=== PATIENT | female | born 1955 | race Hispanic/Latino ===

== ENCOUNTER 2017-12-08 22:57 | Inpatient (IN) | payer MEDICAID ==
[2017-12-08] MEDS ORDERED: NACL 0.9% 500 ML 500 ML IV ONE (23:18)
[2017-12-08] MEDS ORDERED: TYLENOL PO STA (23:18)
[2017-12-08] MEDS ORDERED: NACL 0.9% 1000 ML 2,000 ML ONE (23:24)
[2017-12-08] MEDS ORDERED: ZOFRAN ONE (23:24)
[2017-12-08] MEDS ORDERED: LOPRESSOR IV ONE ×2 (23:32→23:44)
[2017-12-08] MEDS ORDERED: NACL 0.9% 1000 ML 1,000 ML IV ONE (23:44)
[2017-12-08] MEDS ORDERED: ZOFRAN IV ONE (23:44)
--- NOTE | 2017-12-08 23:54 | XRay Report ---
FINAL REPORT PROCEDURE: XR CHEST 1V AP TECHNIQUE: Chest radiograph anteroposterior view. CPT 27993 HISTORY: possible Sepsis COMPARISON: No prior studies are available for comparison. FINDINGS: Two AP upright views of the chest were obtained, both images the patient is rotated to the left. A right jugular central venous line is in place. The tip projects in the proximal SVC. No pneumothorax visualized. Right lung appears clear. Left lung is poorly visualized due to rotation. I cannot exclude retrocardiac density. The heart is magnified due to projection probably normal size. No acute bony abnormalities are seen. IMPRESSION: Central venous line in place as described. No evidence of pneumothorax. The left lung is poorly visualized as the patient is rotated. I cannot exclude retrocardiac density including atelectasis or infiltrate. Follow-up PA and lateral chest x-ray is suggested.
[2017-12-09 00:01] LABS: Hematocrit 21.9 % (30.3-42.9); Hemoglobin 7.3 gm/dl (10.1-14.3); Mean Corpuscular HGB Conc 33 % (30-34); Mean Corpuscular Hemoglobin 31 pg (28-32); Mean Corpuscular Volume 95 fl (79-97); Platelet Count 285 K/mm3 (140-440); Red Blood Count 2.31 M/mm3 (3.65-5.03)
[2017-12-09 00:08] LABS: Red Cell Distribution Width 23.9 % (13.2-15.2)
[2017-12-09 00:09] LABS: INR 1.15 (0.87-1.13)
[2017-12-09] MEDS ORDERED: LOPRESSOR IV ONE ×2 (00:10→01:25)
--- NOTE | 2017-12-09 00:15 | Emergency Department Report ---
ED General Adult HPI - General Chief complaint: Weakness Stated complaint: ANEMIA Time Seen by Provider: 12/08/17 23:28 Source: EMS Mode of arrival: Stretcher Limitations: Physical Limitation - History of Present Illness Initial comments: FPC patient code sepsis here with fever and tachycardia nonhealing pelvic wound that straining pus awake and alert and oriented with Dr. Maxi heller heart rate patient is with RVR patient aftib state. bBlockers with dig for a fib, also on warfarin.with tachycardia rapid A. fib sepsis we'll try any abdominal contact precautions for history of MRSA. She also has diarrhea possible C. difficile., abx adn cultures, ordered. -: Gradual, unknown Location: abdomen Severity scale (0 -10): 1 Quality: burning Associated Symptoms: malaise, weakness. denies: confusion, diaphoresis, nausea/ vomiting, seizure, shortness of breath, syncope - Related Data Allergies Allergy/AdvReac Type Severity Reaction Status Date / Time No Known Allergies Allergy Unverified 12/08/17 23:17 ED Review of Systems ROS: Stated complaint: ANEMIA Other details as noted in HPI Comment: All other systems reviewed and negative Constitutional: diaphoresis, fever, malaise ENT: denies: dental pain, hearing loss, epistaxis Respiratory: denies: shortness of breath, SOB with exertion, SOB at rest, stridor Cardiovascular: palpitations Gastrointestinal: abdominal pain. denies: vomiting, hematemesis, melena, hematochezia Musculoskeletal: denies: joint swelling, arthralgia Neurological: denies: numbness, paresthesias, confusion Psychiatric: denies: auditory hallucinations, visual hallucinations, homicidal thoughts Hematological/Lymphatic: denies: easy bruising ED Past Medical Hx - Past Medical History Previous Medical History?: Yes Hx Hypertension: Yes Hx Congestive Heart Failure: Yes Hx Diabetes: Yes Additional medical history: narcolepsy, MRSA, CA, AF, Ortho injury - Surgical History Past Surgical History?: No - Social History Smoking Status: Never Smoker Substance Use Type: None ED Physical Exam - General Limitations: Physical Limitation General appearance: alert, obese, other (chronically ill-appearing) - Head Head exam: Present: atraumatic, normocephalic - Eye Eye exam: Present: normal appearance, PERRL, EOMI - ENT ENT exam: Present: normal exam, normal orophraynx - Neck Neck exam: Present: normal inspection. Absent: tenderness, meningismus - Respiratory Respiratory exam: Present: normal lung sounds bilaterally. Absent: rales, rhonchi, stridor - Cardiovascular Cardiovascular Exam: Present: tachycardia, irregular rhythm - GI/Abdominal GI/Abdominal exam: Present: soft, other (draining pelvic wound). Absent: mass - External exam: Absent: ecchymosis, bleeding - Extremities Exam Extremities exam: Present: other (capillary refill about 2 seconds). Absent: calf tenderness - Neurological Exam Neurological exam: Present: alert, CN II-XII intact. Absent: motor sensory deficit - Skin Skin exam: Present: erythema ED Course Vital Signs 12/08/17 12/08/17 12/08/17 22:59 23:06 23:15 Temperature 103.0 F H Pulse Rate 156 H 156 H 152 H Respiratory 18 14 25 H Rate Blood Pressure 132/65 132/65 O2 Sat by Pulse 96 96 Oximetry 12/08/17 12/08/17 12/09/17 23:31 23:45 00:01 Temperature Pulse Rate 143 H 133 H 138 H Respiratory 19 21 30 H Rate Blood Pressure 123/53 118/60 129/55 O2 Sat by Pulse 97 100 98 Oximetry 12/09/17 12/09/17 12/09/17 00:13 00:15 00:16 Temperature 1003.1 F H Pulse Rate 124 H 125 H Respiratory 20 14 Rate Blood Pressure 129/55 118/61 O2 Sat by Pulse 100 99 Oximetry 12/09/17 00:30 Temperature Pulse Rate 139 H Respiratory 11 L Rate Blood Pressure 119/52 O2 Sat by Pulse 95 Oximetry ED Medical Decision Making - Lab Data Result diagrams: 12/08/17 23:29 12/08/17 23:29 - EKG Data -: EKG Interpreted by Ut Rate: tachycardia - EKG Data 12/09/17 02:45 Rapid A. fib with no acute ischemic change - Radiology Data Radiology results: report reviewed - Medical Decision Making Patient was given IV fluids she was also given antibiotics and cultured she does seem to have a draining pelvic abscess and she will get a CAT scan. She has a history of MRSA she also has developed peripheral contact precautions for the above. Case was discussed with the hospitalist and Dr. del toro of cardiology will place patient is icu given the rapid heart rate she'll be admitted to ICU and to discuss case with the hospitalist and the [facility] architect dr zelaya repeat blood pressure was stable heart rate was better control 130 patient will be admitted for eval sepsis, lactic acid is pending Critical Care Time: Yes Critical care time in (mins) excluding proc time.: 45 Critical care attestation.: If time is entered above; I have spent that time in minutes in the direct care of this critically ill patient, excluding procedure time. ED Disposition Clinical Impression: Rapid atrial fibrillation, Sepsis Disposition: 09 OP ADMIT IP TO THIS HOSP Is pt being admited?: Yes Condition: Stable Referrals: BARBARA OWENS MD [Primary Care Provider] - 3-5 Days Time of Disposition: 02:49
[2017-12-09 00:16] LABS: Alanine Aminotransferase 13 units/L (7-56); Albumin 2.9 g/dL (3.9-5); BUN/Creatinine Ratio 24; Blood Urea Nitrogen 22 mg/dL (7-17); Calcium 8.4 mg/dL (8.4-10.2); Hemolysis Index 11
[2017-12-09] MEDS ORDERED: BREVIBLOC DRIP 2.5GM/250ML 2.5 GM/250 ML BAG IV ONE (00:56)
[2017-12-09] MEDS ORDERED: ZOSYN/NS 3.375GM/50ML 3.375 GM/50 ML BAG IV SCH ×2 (01:00→12:00)
[2017-12-09] MEDS ORDERED: NACL ONE (01:05)
[2017-12-09 01:55] LABS: Bacteria,Urine 3+ /HPF (Negative); Bilirubin,Urine NEG (Negative); Blood,Urine SM (Negative); Color,Urine Yellow (Yellow); Mucus,Urine FEW /HPF; Urobilinogen,Urine < 2.0 mg/dL (<2.0)
[2017-12-09 02:16] LABS: Band Neutrophils # (Manual) 0.6 K/mm3; Basophils % (Manual) 0 % (0.0-1.8); Eosinophils % (Manual) 0 % (0.0-4.3); Total Cells Counted 100
[2017-12-09 02:17] LABS: Anisocytosis 2+; Platelet Estimate Consistent w Auto
[2017-12-09] MEDS ORDERED: FLAGYL 500 MG/100 ML 500 MG/100 ML BAG IV SCH ×2 (03:00→10:00)
[2017-12-09] MEDS ORDERED: NACL 0.9% 250ML 250 ML ONE (03:23)
[2017-12-09] MEDS ORDERED: LANOXIN IV ONE (03:26)
--- NOTE | 2017-12-09 03:42 | Cat Scan Report ---
FINAL REPORT PROCEDURE: CT ABDOMEN PELVIS W CON TECHNIQUE: Computerized axial tomography of the abdomen and pelvis was performed after the IV injection of iodinated nonionic contrast. HISTORY: abd pain/open wound COMPARISON: No prior studies are available for comparison. FINDINGS: Visualized lower thorax: No significant abnormality. Liver: The liver is enlarged. There is no discrete mass . Spleen: Normal size and attenuation. Gallbladder and biliary system: Normal. Pancreas: Normal. Adrenals: Normal. Kidneys: There are small kidney cysts. There are no kidney stones. There is no hydronephrosis.. GI tract: There is no bowel obstruction, colitis or enteritis. The appendix is not discretely visible.. Lymph nodes and mesentery: Normal. Vasculature: There is calcified plaque in the abdominal aorta. There is no aneurysm.. Bladder: Normal. Reproductive organs: Normal. Peritoneum: There is a low-density mass in the right inguinal region measuring 3.9 centimeters. This could be an enlarged pelvic lymph node or possibly early abscess. Malignancy cannot be excluded.. Musculoskeletal structures: No significant abnormality. Other: There is a defect in the right lower quadrant anterior abdominal wall. There are multiloculated subcutaneous fluid collections of the lower anterior abdominal wall and right lower quadrant anterior abdominal wall containing contrast, fluid and air consistent with multiple abscesses. There is no demonstrated fistula to intra-abdominal structures including bowel. Maximum overall dimensions of the complex abscess or multiple abscesses is 13 x 10 centimeters. IMPRESSION: There is a defect in the right lower quadrant anterior abdominal wall. There are multiloculated subcutaneous fluid collections of the lower anterior abdominal wall and right lower quadrant anterior abdominal wall containing contrast, fluid and air consistent with multiple abscesses. There is no demonstrated fistula to intra-abdominal structures including bowel. Maximum overall dimensions of the complex abscess or multiple abscesses is 13 x 10 centimeters. There is a low-density intraperitoneal mass or fluid collection in the right inguinal region measuring 3.9 centimeters. This could be an enlarged pelvic lymph node or possibly early abscess. There does not appear to be any obvious direct connection to the subcutaneous abscesses. Malignancy cannot be excluded.. The liver is enlarged. There is no discrete mass. There are small kidney cysts. There are no kidney stones. There is no hydronephrosis.. There is no bowel obstruction, colitis or enteritis. The appendix is not discretely visible
[2017-12-09] MEDS ORDERED: ZOFRAN IV PRN (03:43)
[2017-12-09] MEDS ORDERED: TYLENOL PO PRN (03:44)
[2017-12-09] MEDS ORDERED: NACL 0.9% 250ML 250 ML IV ONE ×2 (03:45→04:20)
[2017-12-09 03:48] LABS: INR 1.15 (0.87-1.13)
[2017-12-09 03:49] LABS: Partial Thromboplastin Time 30.5 Sec. (24.2-36.6)
[2017-12-09] MEDS: NACL 0.9% 1000 ML 1,000 ML IV SCH ×2 (04:54→12:12)
[2017-12-09] MEDS ORDERED: NACL 0.9% 1000 ML 1,000 ML ONE (06:29)
[2017-12-09] MEDS ORDERED: LANOXIN IV NR (10:00)
[2017-12-09] MEDS ORDERED: VANCOMYCIN PHARMACY TO DOSE IV SCH (11:00)
--- NOTE | 2017-12-09 11:21 | Consultation ---
History of Present Illness Consult date: 12/09/17 Chief complaint: low blood count - History of present illness History of present illness: 62 yo F with endometrial cancer presented to hospital from inpatient rehab for evaluation of anemia. She states she was sent for a blood transfusion. She has been undergoing radiation and chemotherapy for cancer. She states her 6 weeks of radiation just finished and she is treated at [facility] [place]. The patient has no other complaints. She was admitted to the ICU secondary to Afib RVR. She has a known hx of Afib and is on warfarin. She does not know the last time she took the medication. Surgery is consulted for findings on CT A/P of abscesses in the abdominal wall. The patient states that she had one "abscess drained at [facility] several years ago but it was found to be cancer. Since then multiple skin sinus tracts have opened up in her lower abdomen and have become nonhealing wounds. She states she had a large bulge in her right lower abdomen/ groin area that extended to her leg which has significantly reduced in size since radiation therapy and did not drain. She states her current open wounds drain light serous/yellow fluid and no longer drain blood or pus. She denies f/c , cp, sob, palpitations, abd pain, n/v. Past History Past Medical History: atrial fib, other (endometrial ca) Past Surgical History: Other (drainage of right lower subcutaneous abscess, PICC line) Social history: no significant social history Family history: no significant family history Medications and Allergies Allergies Allergy/AdvReac Type Severity Reaction Status Date / Time No Known Allergies Allergy Unverified 12/08/17 23:17 Active Meds: Active Medications Acetaminophen (Tylenol) 650 mg PO Q4H PRN PRN Reason: For Pain/Fever/Headache Digoxin (Lanoxin) 0.25 mg IV ONCE NR Stop: 12/09/17 12:00 Sodium Chloride (Nacl 0.9% 1000 Ml) 1,000 mls @ 75 mls/hr IV DIRECT CAMMIE Last Admin: 12/09/17 04:54 Dose: 75 mls/hr Piperacillin Sod/Tazobactam Sod (Zosyn/Ns 4.5gm/100ml) 4.5 gm in 100 mls @ 200 mls/hr IV Q8HR CAMMIE Ondansetron HCl (Zofran) 4 mg IV Q8H PRN PRN Reason: Nausea And Vomiting Vancomycin HCl (Vancomycin Pharmacy To Dose) 1 each IV PKCONSULT CAMMIE; Protocol Review of Systems All systems: negative (10 point ROS performed and negative except for that listed in HPI) Exam Vital Signs Temp Pulse Resp BP Pulse Ox 103.0 F H 156 H 18 132/65 96 12/08/17 22:59 12/08/17 22:59 12/08/17 22:59 12/08/17 22:59 12/08/17 22:59 Narrative exam: Gen: AAOx3. NAD ENT: no scleral icterus or conjunctival pallor CV: S1, s2+. tachy resp:even and unlabored Abd: soft, obese, NT, ND. R lower abdominal open wounds under pannus. 4 open wounds with packing in place and seropurulent discharge. Packing removed from all wounds. Wound probed with cotton tip applicator and largest wound is approximately 7-8 cm deep. No active drainage. R lateral groin area with 4 cm fluctuant and erythematous area. No drainage. Ext: no c/c/e. Results - Labs 12/08/17 23:29 12/08/17 23:29 Abnormal lab results 12/08/17 12/08/17 12/08/17 Range/Units 01:35 23:29 23:29 RBC 2.31 L (3.65-5.03) M/mm3 Hgb 7.3 L (10.1-14.3) gm/dl Hct 21.9 L (30.3-42.9) % RDW 23.9 H (13.2-15.2) % Seg Neuts % (Manual) 92.0 H (40.0-70.0) % Lymphocytes % (Manual) 0 L (13.4-35.0) % Seg Neutrophils # Man 10.1 H (1.8-7.7) K/mm3 Lymphocytes # (Manual) 0.0 L (1.2-5.4) K/mm3 PT 15.3 H (12.2-14.9) Sec. INR 1.15 H (0.87-1.13) VBG pH (7.320-7.420) Sodium (137-145) mmol/L Chloride (98-107) mmol/L BUN (7-17) mg/dL Glucose (65-100) mg/dL Albumin (3.9-5) g/dL Urine WBC (Auto) 48.0 H (0.0-6.0) /HPF Digoxin (0.9-2.0) ng/mL 12/08/17 12/08/17 12/09/17 Range/Units 23:29 23:29 01:47 RBC (3.65-5.03) M/mm3 Hgb (10.1-14.3) gm/dl Hct (30.3-42.9) % RDW (13.2-15.2) % Seg Neuts % (Manual) (40.0-70.0) % Lymphocytes % (Manual) (13.4-35.0) % Seg Neutrophils # Man (1.8-7.7) K/mm3 Lymphocytes # (Manual) (1.2-5.4) K/mm3 PT (12.2-14.9) Sec. INR (0.87-1.13) VBG pH 7.449 H (7.320-7.420) Sodium 132 L (137-145) mmol/L Chloride 92.0 L (98-107) mmol/L BUN 22 H (7-17) mg/dL Glucose 263 H (65-100) mg/dL Albumin 2.9 L (3.9-5) g/dL Urine WBC (Auto) (0.0-6.0) /HPF Digoxin 0.7 L (0.9-2.0) ng/mL 12/09/17 Range/Units 03:14 RBC (3.65-5.03) M/mm3 Hgb (10.1-14.3) gm/dl Hct (30.3-42.9) % RDW (13.2-15.2) % Seg Neuts % (Manual) (40.0-70.0) % Lymphocytes % (Manual) (13.4-35.0) % Seg Neutrophils # Man (1.8-7.7) K/mm3 Lymphocytes # (Manual) (1.2-5.4) K/mm3 PT 15.3 H (12.2-14.9) Sec. INR 1.15 H (0.87-1.13) VBG pH (7.320-7.420) Sodium (137-145) mmol/L Chloride (98-107) mmol/L BUN (7-17) mg/dL Glucose (65-100) mg/dL Albumin (3.9-5) g/dL Urine WBC (Auto) (0.0-6.0) /HPF Digoxin (0.9-2.0) ng/mL Diabetes panel 12/08/17 Range/Units 23:29 Sodium 132 L (137-145) mmol/L Potassium 4.0 (3.6-5.0) mmol/L Chloride 92.0 L (98-107) mmol/L Carbon Dioxide 25 (22-30) mmol/L BUN 22 H (7-17) mg/dL Creatinine 0.9 (0.7-1.2) mg/dL Glucose 263 H (65-100) mg/dL Calcium 8.4 (8.4-10.2) mg/dL AST 20 (5-40) units/L ALT 13 (7-56) units/L Alkaline Phosphatase 54 (35-129) units/L Total Protein 6.8 (6.3-8.2) g/dL Albumin 2.9 L (3.9-5) g/dL Calcium panel 12/08/17 Range/Units 23:29 Calcium 8.4 (8.4-10.2) mg/dL Albumin 2.9 L (3.9-5) g/dL Pituitary panel 12/08/17 Range/Units 23:29 Sodium 132 L (137-145) mmol/L Potassium 4.0 (3.6-5.0) mmol/L Chloride 92.0 L (98-107) mmol/L Carbon Dioxide 25 (22-30) mmol/L BUN 22 H (7-17) mg/dL Creatinine 0.9 (0.7-1.2) mg/dL Glucose 263 H (65-100) mg/dL Calcium 8.4 (8.4-10.2) mg/dL Adrenal panel 12/08/17 Range/Units 23:29 Sodium 132 L (137-145) mmol/L Potassium 4.0 (3.6-5.0) mmol/L Chloride 92.0 L (98-107) mmol/L Carbon Dioxide 25 (22-30) mmol/L BUN 22 H (7-17) mg/dL Creatinine 0.9 (0.7-1.2) mg/dL Glucose 263 H (65-100) mg/dL Calcium 8.4 (8.4-10.2) mg/dL Total Bilirubin 0.30 (0.1-1.2) mg/dL AST 20 (5-40) units/L ALT 13 (7-56) units/L Alkaline Phosphatase 54 (35-129) units/L Total Protein 6.8 (6.3-8.2) g/dL Albumin 2.9 L (3.9-5) g/dL - Imaging CT scan - abdomen: report reviewed, image reviewed CT scan - pelvis: report reviewed, image reviewed Assessment and Plan 62 yo F with 1. sepsis 2. abdominal wall abscess vs necrotic lymph nodes 3. chronic abdominal wall wound 4. hx of endometrial ca 5. Afib RVR Ct A/P Reviewed with in house radiologist. Abdominal wall collections do not appear to have connection to intraabdominal structures. May likely be necrotic lymph nodes Plan: 1. continue IV abx 2. wound care consult for open wound 3. obtain wound cultures 4. hold warfarin 5. will follow with you. If patient has persistent fevers despite abx and wound care, will consider for surgical drainage. I discussed this with the patient. She is aware that incision and drainage of these collections will likely result in more open sinus tracts. She understands. 6. ID recs appreciated - IR drainage is an alternative to open drainage of the collections. D/W Dr. Najera
--- NOTE | 2017-12-09 11:38 | Consultation ---
History of Present Illness Consult date: 12/09/17 Requesting physician: MANDY HOLLAND Reason for consult: other (Sepsis Syndrome; PA; A-fib with RVR) History of present illness: PULMONARY/CCM CONSULT NOTE (Full dictation # [id number]) Please see dictated notes for full details Medications and Allergies Allergies Allergy/AdvReac Type Severity Reaction Status Date / Time No Known Allergies Allergy Unverified 12/08/17 23:17 Active Meds: Active Medications Acetaminophen (Tylenol) 650 mg PO Q4H PRN PRN Reason: For Pain/Fever/Headache Digoxin (Lanoxin) 0.25 mg IV ONCE NR Stop: 12/09/17 12:00 Sodium Chloride (Nacl 0.9% 1000 Ml) 1,000 mls @ 75 mls/hr IV DIRECT CAMMIE Last Admin: 12/09/17 04:54 Dose: 75 mls/hr Piperacillin Sod/Tazobactam Sod (Zosyn/Ns 4.5gm/100ml) 4.5 gm in 100 mls @ 200 mls/hr IV Q8HR CAMMIE Ondansetron HCl (Zofran) 4 mg IV Q8H PRN PRN Reason: Nausea And Vomiting Vancomycin HCl (Vancomycin Pharmacy To Dose) 1 each IV PKCONSULT CAMMIE; Protocol Physical Examination Vital signs: Vital Signs Temp Pulse Resp BP Pulse Ox 103.0 F H 156 H 18 132/65 96 12/08/17 22:59 12/08/17 22:59 12/08/17 22:59 12/08/17 22:59 12/08/17 22:59 Results - Laboratory Findings CBC and BMP: 12/08/17 23:29 12/08/17 23:29 PT/INR, D-dimer PT 15.3 Sec. (12.2-14.9) H 12/09/17 03:14 INR 1.15 (0.87-1.13) H 12/09/17 03:14 Abnormal lab findings: Abnormal Labs 12/08/17 12/08/17 12/08/17 01:35 23:29 23:29 RBC 2.31 L Hgb 7.3 L Hct 21.9 L RDW 23.9 H Seg Neuts % (Manual) 92.0 H Lymphocytes % (Manual) 0 L Seg Neutrophils # Man 10.1 H Lymphocytes # (Manual) 0.0 L PT 15.3 H INR 1.15 H VBG pH Sodium Chloride BUN Glucose Albumin Urine WBC (Auto) 48.0 H Digoxin 12/08/17 12/08/17 12/09/17 23:29 23:29 01:47 RBC Hgb Hct RDW Seg Neuts % (Manual) Lymphocytes % (Manual) Seg Neutrophils # Man Lymphocytes # (Manual) PT INR VBG pH 7.449 H Sodium 132 L Chloride 92.0 L BUN 22 H Glucose 263 H Albumin 2.9 L Urine WBC (Auto) Digoxin 0.7 L 12/09/17 03:14 RBC Hgb Hct RDW Seg Neuts % (Manual) Lymphocytes % (Manual) Seg Neutrophils # Man Lymphocytes # (Manual) PT 15.3 H INR 1.15 H VBG pH Sodium Chloride BUN Glucose Albumin Urine WBC (Auto) Digoxin
[2017-12-09] MEDS: VANCOMYCIN 2,000 MG in NACL 0.9% 500 ML 500 ML IV SCH ×2 (12:14→22:53)
[2017-12-09] MEDS ORDERED: D50W (25GM) Syringe IV PRN (13:36)
[2017-12-09] MEDS ORDERED: ZOSYN/NS 4.5GM/100ML 4.5 GM/100 ML VIAL IV SCH (14:00)
--- NOTE | 2017-12-09 14:13 | Consultation ---
History of Present Illness - Reason for Consult Consult date: 12/09/17 sepsis Requesting physician: TRISH PACE - History of Present Illness 62 years old female with history of stage IV endometrial carcinoma with fungating mass to the RLQ abdominal wall and right groin. She is status post radiation and [place] [facility] Patient was initially admitted in Jun 2017 due to persistent right lower quadrant and drainage. Biopsy demonstrated stage IV adenocarcinoma of the endometrium. The patient was taken to the operating room and had I&D as well as started on palliative radiation and chemotherapy. During the prolonged hospital course she developed pneumonia due to ESBL and UTI. Of note, at some point she had Cdiff colitis and MRSA infection ? location. Patient was appropriately (treated according to medical records. It seems like by 12/02/17 she spiked a fever and blood cultures were sent which were negative. Urine culture grew Klebsiella multidrug resistant it is unclear which medication she received for this. Patient was then discharged to a rehabilitation facility. Last year, she was found to have a right lower quadrant abdominal wall abscess back in October 2016. She underwent I&D in March 2017 with a wound VAC placement. She then had a fall and experienced left distal femoral fracture status post ORIF. Right upper quadrant/groin wound remained draining and she was admitted to [facility] [place]. Unfortunately, she was sent to the ED on 12/08/17 due to fever and tachycardia and nonhealing pelvic wound that straining pus. Of note patient has tunneled right neck PICC for over 30 days. In the ED, initial temperature was 103, heart rate 156, blood pressure 132/65. Initial white count 11. Hemoglobin 7.3. Platelets 285. Creatinine 0.9. Urinalysis is moderate LE white blood cells 48. Chest x-ray was rotated. CT of the abdomen showed right lower lobe abdominal wall defect with a multi loculated subcutaneous fluid collections on lower abdominal wall and right lower quadrant collection with fluid and air levels. He is to be seen. Collections are 13 x 10 cm. Microbiology: Blood cultures: 12/02 neg 12/09 GPC in clusters 1 of 4 Urine cultures: 12/02 >100K Klebsiella only sens to meropenem Current Antimicrobials: Vancomycin 12/09 zosyn 12/09 Previous Antimicrobials: Past History Past Medical History: other (adenocarcinoma of endometrium stage IV, MRSA infection?, C diff colitis, recurrent UTIs, chronic RLQ abdominal wall wound. ) Past Surgical History: Other (RLQ abd wall debridement x multiple. ) Social history: , lives with family. denies: smoking, alcohol abuse, IV drug use Family history: no significant family history Medications and Allergies Allergies Allergy/AdvReac Type Severity Reaction Status Date / Time No Known Allergies Allergy Unverified 12/08/17 23:17 Active Meds: Active Medications Acetaminophen (Tylenol) 650 mg PO Q4H PRN PRN Reason: For Pain/Fever/Headache Dextrose (D50w (25gm) Syringe) 50 ml IV PRN PRN PRN Reason: Hypoglycemia Enoxaparin Sodium (Lovenox) 40 mg SUB-Q QDAY@2200 CAMMIE Famotidine (Pepcid) 20 mg PO QDAY CAMMIE Sodium Chloride (Nacl 0.9% 1000 Ml) 1,000 mls @ 75 mls/hr IV DIRECT [facility] Last Admin: 12/09/17 12:12 Dose: 100 mls/hr Piperacillin Sod/Tazobactam Sod (Zosyn/Ns 4.5gm/100ml) 4.5 gm in 100 mls @ 200 mls/hr IV Q6HR [facility] Last Admin: 12/09/17 13:18 Dose: 200 mls/hr Vancomycin HCl 2,000 mg/ (Sodium Chloride) 520 mls @ 250 mls/hr IV Q12HR [facility] Last Infusion: 12/09/17 12:57 Dose: 0 mls/hr Insulin Human Regular (Humulin R) 0 units SUB-Q ACHS [facility]; Protocol Ondansetron HCl (Zofran) 4 mg IV Q8H PRN PRN Reason: Nausea And Vomiting Vancomycin HCl (Vancomycin Pharmacy To Dose) 1 each IV PKCONSULT [facility]; Protocol Review of Systems All systems: negative (as per HPI. Rest of 10 point review systems negative) Physical Examination - Physical Exam Narrative exam: General appearance: Alert in NAD, conversant Eyes: anicteric sclerae, moist conjunctivae; no lid-lag; PERRLA HENT: Atraumatic; oropharynx clear with moist mucous membranes and no mucosal ulcerations/no oral thrush; normal hard and soft palate. Normal external ears. Neck: Trachea midline; supple, no thyromegaly or lymphadenopathy Lungs: CTA, with normal respiratory effort and no intercostal retractions CV: RRR, no murmurs Abdomen: Soft, non-tender; RLQ / groin 4 wound openings packed no drainage, no erythema. Extremities: No peripheral edema or extremity lymphadenopathy Skin: Normal temperature, turgor and texture; no rash, ulcers or subcutaneous nodules Psych: Appropriate affect, alert and oriented to person, place and time. Neuro: alert and oriented x 3. Moving all extermities Lines: right neck tunneled PICC - Constitutional Vitals: Vital Signs Temp Pulse Resp BP Pulse Ox 98.0 F 113 H 19 115/58 98 12/09/17 12:00 12/09/17 10:30 12/09/17 06:45 12/09/17 10:30 12/09/17 06:45 Temperature -Last 24 Hours Temperature 98.0 F Temperature 98.0 F Temperature 98.7 F Temperature 1003.1 F Temperature 103.0 F Results - Labs CBC & Chem 7: 12/08/17 23:29 12/08/17 23:29 Labs: Abnormal lab results 12/08/17 12/08/17 12/08/17 Range/Units 01:35 23:29 23:29 RBC 2.31 L (3.65-5.03) M/mm3 Hgb 7.3 L (10.1-14.3) gm/dl Hct 21.9 L (30.3-42.9) % RDW 23.9 H (13.2-15.2) % Seg Neuts % (Manual) 92.0 H (40.0-70.0) % Lymphocytes % (Manual) 0 L (13.4-35.0) % Seg Neutrophils # Man 10.1 H (1.8-7.7) K/mm3 Lymphocytes # (Manual) 0.0 L (1.2-5.4) K/mm3 PT 15.3 H (12.2-14.9) Sec. INR 1.15 H (0.87-1.13) VBG pH (7.320-7.420) Sodium (137-145) mmol/L Chloride (98-107) mmol/L BUN (7-17) mg/dL Glucose (65-100) mg/dL Albumin (3.9-5) g/dL Urine WBC (Auto) 48.0 H (0.0-6.0) /HPF Digoxin (0.9-2.0) ng/mL 12/08/17 12/08/17 12/09/17 Range/Units 23:29 23:29 01:47 RBC (3.65-5.03) M/mm3 Hgb (10.1-14.3) gm/dl Hct (30.3-42.9) % RDW (13.2-15.2) % Seg Neuts % (Manual) (40.0-70.0) % Lymphocytes % (Manual) (13.4-35.0) % Seg Neutrophils # Man (1.8-7.7) K/mm3 Lymphocytes # (Manual) (1.2-5.4) K/mm3 PT (12.2-14.9) Sec. INR (0.87-1.13) VBG pH 7.449 H (7.320-7.420) Sodium 132 L (137-145) mmol/L Chloride 92.0 L (98-107) mmol/L BUN 22 H (7-17) mg/dL Glucose 263 H (65-100) mg/dL Albumin 2.9 L (3.9-5) g/dL Urine WBC (Auto) (0.0-6.0) /HPF Digoxin 0.7 L (0.9-2.0) ng/mL 12/09/17 Range/Units 03:14 RBC (3.65-5.03) M/mm3 Hgb (10.1-14.3) gm/dl Hct (30.3-42.9) % RDW (13.2-15.2) % Seg Neuts % (Manual) (40.0-70.0) % Lymphocytes % (Manual) (13.4-35.0) % Seg Neutrophils # Man (1.8-7.7) K/mm3 Lymphocytes # (Manual) (1.2-5.4) K/mm3 PT 15.3 H (12.2-14.9) Sec. INR 1.15 H (0.87-1.13) VBG pH (7.320-7.420) Sodium (137-145) mmol/L Chloride (98-107) mmol/L BUN (7-17) mg/dL Glucose (65-100) mg/dL Albumin (3.9-5) g/dL Urine WBC (Auto) (0.0-6.0) /HPF Digoxin (0.9-2.0) ng/mL Assessment and Plan Assessment: 1) Sepsis: Present on admission, manifested by fever, tachycardia, leukocytosis. Etiology most likely GPC bacteremia +/- pelvic abscesses +/- UTI. 2) Pelvic multi-loculated abscesses: from metastatic necrotic adenocarcinoma of endometrium -CT of the abdomen showed right lower lobe abdominal wall defect with a multi loculated subcutaneous fluid collections on lower abdominal wall and right lower quadrant collection with fluid and air levels. He is to be seen. Collections are 13 x 10 cm. 3) GPC in clusters bacteremia: real vs. contaminant ? source PICC -Blood cx 12/08 1 of 4 positive for GPC 4) Recent MDR Klebsiella UTI 5) Stage IV endometrial carcinoma with fungating mass to the RLQ abdominal wall and right groin. She is status post radiation and chemotherapy at [facility] 6) Recent pneumonia due to ESBL 7) Recurrent UTI 8) History of Cdiff colitis 9) History of MRSA infection ? location. 10) Tunneled right neck PICC for over 30 days. 11) DM 12) Morbid obesity Plan: -follow-up blood cultures, urine culture -obtain TTE -obtain C-reactive protein (CRP) -Consider IR-abdominal collection drainage -stop zosyn -start meropenem to cover MDR UTI -continue vancomcyin IV with careful creat monitoring to cover GPC in blood cx -If blood cx continues to grow > 2 bottles or MRSA then PICC should be removed -contact isolation -very complex case considering transferring back to [facility] Thank you for your consultation, will follow up with you. Christine Kerns MD Infectious Diseases Specialist [facility] ([facility]) M [phone] O [phone]
[2017-12-09] MEDS: MERREM 1,000 MG in NACL 0.9% 100 ML IV SCH ×2 (15:30→21:36)
[2017-12-09] MEDS: HumuLIN R SUB-Q SCH ×2 (16:54→22:49)
[2017-12-09] MEDS: PERCOCET 5/325 PO PRN (21:36)
[2017-12-09] MEDS ORDERED: LOVENOX SUB-Q SCH (22:00)
[2017-12-10] MEDS: NACL 0.9% 1000 ML 1,000 ML IV SCH (04:45)
[2017-12-10] MEDS: MERREM 1,000 MG in NACL 0.9% 100 ML IV SCH (05:06)
[2017-12-10] MEDS ORDERED: CATHFLO IV ONE (05:13)
[2017-12-10 05:57] LABS: Mean Corpuscular HGB Conc 34 % (30-34); Mean Corpuscular Hemoglobin 32 pg (28-32); Mean Corpuscular Volume 94 fl (79-97); Platelet Count 206 K/mm3 (140-440); Red Blood Count 1.85 M/mm3 (3.65-5.03)
[2017-12-10 06:01] LABS: Hematocrit 17.3 % (30.3-42.9); Hemoglobin 5.9 gm/dl (10.1-14.3)
[2017-12-10 06:21] LABS: BUN/Creatinine Ratio 28; Blood Urea Nitrogen 22 mg/dL (7-17); Calcium 8.2 mg/dL (8.4-10.2); Hemolysis Index 10
[2017-12-10] MEDS ORDERED: NACL 0.9% 500 ML 500 ML IV ONE (06:29)
[2017-12-10] MEDS ORDERED: WATER FOR INJ (PF) 10 ML ONE (07:14)
--- NOTE | 2017-12-10 07:33 | Consultation ---
PULMONARY/CRITICAL CARE CONSULTATION CONSULTING PHYSICIAN: Maximo Najera MD. REASON FOR CONSULTATION: Critical care management. Code sepsis. CHIEF COMPLAINT AND HISTORY OF PRESENT ILLNESS: The patient is a 62-year-old female with past medical history perhaps most significant for a nonhealing pelvic wound related to treatment for endometrial cancer and status post radiation therapy as part of her palliative treatment, which is believed to have affected wound healing and now status post ____ and admission at an outlying hospital at [facility] for a total of 122 days, so has been in the healthcare system and hospital-associated infections certainly a possibility. She was brought in from the senior care with fevers, tachycardia and the wound was draining pus. She was alert and oriented. She apparently went into atrial fibrillation with a rapid ventricular response. She does have chronic atrial fibrillation. She is on beta blockers and digoxin for her treatment. She had complained of 3 days of diarrhea prior to presentation and Prior to her decompensation. In the Emergency Room, she was given IV fluids, antibiotics were started, sepsis protocol was initiated. She was put in contact isolation secondary to her history of MRSA and I believe a multidrug resistant E. coli. also. She was ultimately transferred to the Intensive Care Unit, I believe, for the sepsis as well as for the atrial fibrillation with a rapid ventricular response. When I stopped by to see her, she was feeling better. She was lying flat in bed. Denied any acute uncontrolled pain. She denies any history of tobacco use or abuse whatsoever. She admits to a history of obstructive sleep apnea and is on CPAP for that problem. She does not remember any particular altered mental status, dizziness that may have been associated with hypotension. She tells me she was told she was brought to the hospital due to anemia and hemoglobin of 6.8. This is much of the history of presentation as I have. PAST MEDICAL HISTORY: Significant for hypertension, congestive heart failure, diabetes, history of narcolepsy, history of, I believe, endometrial cancer, recent history of a left femur fracture and history of congestive heart failure. She is obese to morbidly obese. History of anemia. PAST SURGICAL HISTORY: She has had some pelvic surgery, I believe, in relation to her endometrial cancer. MEDICATIONS: She was on at the time I stopped by to see were reviewed, pertinent medications include the following: She was on Zofran 4 mg IV q. 8 hours p.r.n. nausea and vomiting, Zosyn 4.5 grams IV q. 6 hours. She was scheduled to receive 2 grams of vancomycin that was held secondary to her report of renal failure in association with the last time she was given vancomycin. She received digoxin in the Emergency Room. She was on an esmolol drip for a little while in the Emergency Room. She received Flagyl in the Emergency Room. ALLERGIES: VANCOMYCIN, according to her, gave her renal failure. DIET: Morbidly obese. Acute weight loss or gain history is unknown. FAMILY AND SOCIAL HISTORY: Lives in a senior care at this point. She is . Denies tobacco use or abuse, alcohol, illicit drug use or abuse history is unknown. FAMILY AND SOCIAL HISTORY: Otherwise noncontributory. REVIEW OF SYSTEMS: No loss of consciousness. No new onset seizures. No new onset focal weakness. She has had diarrhea; however, no gross hematochezia or melena, no gross hematuria, no dysuria. She had a tachycardia without palpitations. Complete 13 systems review of systems obtained. Pertinent positives and/or negatives as in body of history above, otherwise they are noncontributory. PHYSICAL EXAMINATION: VITAL SIGNS: At presentation in the Emergency Room, she had a fever 103.0 degrees Fahrenheit with a pulse of 156, respiratory rate of 18, blood pressure 132/65, oxygen sats were 96%, inspired oxygen concentration was not recorded, blood pressure was as low as 72/45 at a point. Right now, blood pressure is 115/58 and 98 degrees Fahrenheit axillary. GENERAL: She is a morbidly obese female, looks middle-aged. She has an obvious swelling around the right infraauricular region. This is about the size of an egg with a little bit of a bluish tint that she said she has had pretty much all her life. Talking to me in full sentences without significant respiratory distress. HEAD, EYES, EARS, NOSE AND THROAT: She is anicteric, no conjunctival erythema. Oropharynx is a Mallampati #4. Oropharynx is moist. No gross jugular venous distention, no thyromegaly, no palpable lymph nodes in the supraclavicular or submandibular lymph node chains. She does have the swelling that I described, which does not appear to be a lymph node, has the consistency of a lipoma. LUNGS: Auscultation of both lung villalta unremarkable. Lungs are clear bilaterally, slightly diminished bibasilar air entry, but no wheezing. HEART: Heart sounds 1 and 2 are heard at the time of my evaluation. Irregular rate and rhythm, but the pulse was controlled, the pulse in the 90s. No rubs or murmurs. ABDOMEN: Full, soft. Bowel sounds are positive, nontender, nondistended, but certainly obese, lot of central obesity. No obvious hepatosplenomegaly. EXTREMITIES: Without overt digital clubbing, cyanosis, or pedal edema. Warm to touch. She has SCDs of both lower extremities. NEUROLOGIC: The pupils were equal, round, about 3-4 mm, reactive to light. Extraocular muscle movements were intact. She had spontaneous movements to all 4 extremities. The skin was of normal turgor. She has the area of the pelvic wound that I did not examine. Otherwise, no decubitus ulcers are reported. LABORATORY DATA: From my review are as follows: White cell count 11,000, hemoglobin 7.3, hematocrit 21.9, platelet count 285, 5% band forms reported. INR was 1.15. Venous blood gas showed a pH of 7.45. Serum sodium was 132, potassium 4.0, chloride 92, bicarbonate 25, BUN 22, creatinine 0.9, glucose was 263. Lactic acid level within normal limits at 1.6. Liver function tests essentially within normal limits. Albumin was 2.9. Urinalysis showed moderate leukocyte esterase, 48 white cells per high power field. Digoxin level was low at 0.7. Blood cultures have been drawn, no growth to date. I am unable to pull up the radiographic images unfortunately. The chest x-ray I have reviewed report on; it is described as a central venous line, right IJ line is in place, tip is in the proximal SVC, no pneumothorax. Left lung is poorly visualized secondary to the rotation. A CT of the abdomen and pelvis was also done. It was described as a complex abscess or multiple abscess with a maximum dimension of 13 x 10 cm lower anterior abdominal wall and right lower quadrant. Liver is enlarged. No bowel obstruction. ASSESSMENT: 1. Severe sepsis with shock. 2. Possible superinfection of complex pelvic wound. 3. Atrial fibrillation with rapid ventricular response. 4. Diarrhea with the possibility of Clostridium difficile colitis infection. 5. Anemia, normocytic, possibly of chronic disease. 6. Hyponatremia. 7. History of diabetes. 8. Possible urinary tract infection. 9. Obstructive sleep apnea. 10. Morbid obesity. 11. History of methicillin resistant Staphylococcus aureus infection. PLAN: Continue volume resuscitation at this point. The mean arterial pressures are acceptable now. We will continue the gentle volume resuscitation, however. Vasopressors will be given as necessary to keep mean arterial pressures greater than or equal to about 65 mmHg if she is not responsive to volume down the line. Infectious Disease consultation has been placed to assist with management of this complex abdominal infection in this lady who is status post a long time hospital admission and at risk for nosocomial infections. Glycemic control will be via sliding scale insulin, plus or minus long acting insulin therapy. It is unclear if she was on any long-acting insulin on the outpatient level. I have asked her to call her to bring in her CPAP machine, so that she uses her noninvasive ventilation for obstructive sleep apnea at bedtime. Oxygen will be supplemented as necessary to keep sats greater than or equal to about 90%. Aspiration precautions will be maintained. She will be placed on GI prophylaxis as well as DVT prophylaxis. I have a short leash to evaluate for venous thromboembolic phenomenon as a cause of her fever of unknown origin. Flu and pneumonia vaccination will be per protocol. Thank you very much for the consult Dr. Njaera. We will follow along and make further recommendations as picture progresses/becomes clearer. She is critically ill with likely septic shock and at high risk for further deterioration including . At this time, I spent about 30-35 minutes of critical care time without overlap excluding any procedural time that may be necessary. JOB# [id number] ANDREW/MARIA ANTONIA
[2017-12-10] MEDS ORDERED: NACL 0.9% 500 ML 500 ML ONE (08:44)
[2017-12-10] MEDS: HumuLIN R SUB-Q SCH ×3 (09:32→18:15)
[2017-12-10] MEDS ORDERED: PEPCID PO SCH (10:00)
--- NOTE | 2017-12-10 10:13 | History and Physical Report ---
CHIEF COMPLAINT: Weakness. OTHER COMPLAINT: Include fever and palpitation. HISTORY OF PRESENT ILLNESS: The patient is a 62-year-old female brought from halfway after she started having fever with palpitation and weakness. The patient was noted to have low blood count and was brought to ER for evaluation. The patient denied history of chest pain, denied history of shortness of breath and also denied history of nausea and vomiting. The patient has had multiple abdominal wall abscess with nonhealing pelvic wound that is draining some purulent liquid. Also, the patient has history of diarrhea. PAST MEDICAL HISTORY: Pertinent for hypertension, congestive heart failure, diabetes mellitus, narcolepsy, methicillin-resistant staphylococcus aureus infection, atrial fibrillation. Also, the patient has pass history of abdominal and pelvic wall abscess. PAST SURGICAL HISTORY: Pertinent for drainage and debridement of abdominal wall abscess. FAMILY HISTORY: Noncontributory. SOCIAL HISTORY: The patient stays at the halfway, does not smoke, does not drink alcohol and does not use illicit drug. MEDICATIONS: The patient's home medications are not fully known, but the patient is on warfarin among other medications. ALLERGIES: There are no known drug allergies. REVIEW OF SYSTEMS: CONSTITUTIONAL: There is fever. There is no diaphoresis. There are no chills. HEENT: There is no headache or sore throat. CARDIOVASCULAR SYSTEM: There is no chest pain or orthopnea, but he has palpitation. RESPIRATORY: There is no shortness of breath or cough. GASTROINTESTINAL: There is no nausea, no vomiting, no abdominal pain, but there is diarrhea and no constipation. NEUROLOGICAL: There is no numbness, no dizziness, no altered mental status. MUSCULOSKELETAL: There is no joint pain or swelling. DERMATOLOGICAL: There is draining nonhealing wound in the pelvic area and adjacent abdominal wall area. GENITOURINARY: There is no dysuria, hematuria or flank pain. Rest of system review is normal. PHYSICAL EXAMINATION: GENERAL: At the time of exam, the patient was found to be alert, oriented x 3, and not in acute distress. VITAL SIGNS: The patient's initial vital signs shows a temperature of 103 degrees Fahrenheit, pulse of 156, respirations 18, blood pressure 132/65, O2 sat of 96% on room air. HEENT: Pupils to be equal, round, reactive to light and accommodating. Extraocular muscles are intact. NECK: Supple with no JVD or carotid bruit. CARDIOVASCULAR: Showed normal first and second heart sounds with rapid rate and irregularly irregular rhythm. RESPIRATORY: Show good air entry on both sides of the lungs with no abnormal breath sounds. GASTROINTESTINAL SYSTEM: Show abdomen to be full, soft, nontender with no organomegaly or rigidity. NEUROLOGIC: Shows no focal deficit. MUSCULOSKELETAL: Show no joint swelling or tenderness. DERMATOLOGICAL: Show abdominal wall surgical scars with poorly healed wound with drainage in the pelvic area and adjacent abdominal area. GENITOURINARY: Show no costovertebral angle tenderness. PERTINENT LABORATORY AND IMAGING STUDIES: The patient had CBC done with normal white count, low hemoglobin of 7.3 and low hematocrit of 21.9 with normal MCV with CBC differential of elevated neutrophil count of 92% with no significant band found. The patient's coagulation studies show elevated PT of 15.3 with slightly elevated INR of 1.15 with the patient on Coumadin. The patient's chemistry showed low sodium of 132 with low chloride of 92, elevated BUN of 22 with normal creatinine and normal estimated GFR of greater than 60. The patient's blood glucose level is high with a value of 263 and the patient has low albumin level of 2.9 and lactic acid level was normal with a value of 1.6. The patient's urinalysis showed moderate urine leukocyte esterase, negative urine nitrites, high urine WBC of 48 with 3+ bacteria. The patient's digoxin level is low with a value of 0.7. IMAGING STUDIES: The patient has CT of the abdomen and pelvis done, which results pending. The patient also had a chest x-ray done that shows central venous line in place with no evidence of pneumothorax and the radiologist commented that the left lung is poorly visualized because of the patient's rotation; however, the radiologist say that he cannot exclude retrocardiac density including atelectasis or infiltrate and recommended a PA and lateral chest x-ray for that. ASSESSMENT AND PLAN: 1. Abdominal and pelvic wall abscess. 2. Sepsis. 3. Atrial fibrillation with rapid ventricular rate. 4. Urinary tract infection. 5. Diabetes mellitus. 6. Anemia. PLAN: The patient will be admitted to critical care unit and will receive another dose of digoxin 6 hours from the last dose at about 09:25 a.m. this morning to be able to control the atrial fibrillation with rapid ventricular rate. Also, the patient will be on IV normal saline at 75 mL an hour to have gone through the rapid heart rate and for management of sepsis, the patient will remain on IV Zosyn 3.375 grams q. 8 hours, on IV metronidazole 500 mg q. 8 hours for management of urinary tract infection. The patient is already placed on IV Zosyn 3.375 grams q. 8 hours and for the management of anemia, the patient will have CBC in the morning to trend the hemoglobin and hematocrit. For management of diabetes mellitus, the patient will be placed on carbohydrate restrictive diet with 2-gram sodium and the patient will be on Accu-Chek before meals and at bedtime followed by moderate dose sliding scale using regular insulin coverage. The patient will also have wound care nurse consult for management of poorly healed wound and the patient will be on IV Zofran 4 mg every 6 hours for nausea and vomiting and Tylenol 650 mg by mouth every 4 hours for fever, headache. The patient's home medications also will be reconciled and applied when they are fully known. JOB# [id number] OCN/NTS
--- NOTE | 2017-12-10 10:50 | Progress Note ---
Assessment and Plan 62 yo F with 1. sepsis 2. abdominal wall abscess vs necrotic lymph nodes 3. chronic abdominal wall wounds 4. hx of endometrial ca 5. Afib RVR 6. anemia Plan: 1. continue IV abx 2. dressing changes per wound care 3. f/u wound cultures 4. hold warfarin 5. transfuse prn 6. recommend transfer to [facility] where all of the patient's physicians and cancer care is established. I discussed this with the patient as a possibility and she is amenable. Will follow with you. Thank you for this consultation, please call with questions or concerns. Subjective Date of service: 12/10/17 Narrative: Pt seen and examined. Feels slightly better today. Receiving PRBC transfusion. No cp, sob, n/v, abd pain. Tmax 102.4 yesterday. Objective Vital Signs - 12hr 12/09/17 12/09/17 12/09/17 22:50 22:58 23:00 Temperature Pulse Rate 110 H 109 H 111 H Pulse Rate [ From Monitor] Respiratory 25 H 28 H 27 H Rate Blood Pressure 119/51 119/51 100/40 O2 Sat by Pulse 94 93 93 Oximetry 12/09/17 12/09/17 12/09/17 23:03 23:11 23:15 Temperature Pulse Rate 115 H 108 H 111 H Pulse Rate [ From Monitor] Respiratory 20 28 H 29 H Rate Blood Pressure 100/40 100/40 100/40 O2 Sat by Pulse 92 92 93 Oximetry 12/09/17 12/09/17 12/09/17 23:20 23:21 23:30 Temperature 99.8 F H Pulse Rate 101 H 100 H Pulse Rate [ From Monitor] Respiratory 23 23 Rate Blood Pressure 100/40 100/40 O2 Sat by Pulse 94 93 Oximetry 12/09/17 12/09/17 12/10/17 23:40 23:50 00:00 Temperature 99.8 F H Pulse Rate 104 H 85 97 H Pulse Rate [ 103 H From Monitor] Respiratory 20 21 22 Rate Blood Pressure 100/40 100/40 102/54 O2 Sat by Pulse 94 96 94 Oximetry 12/10/17 12/10/17 12/10/17 00:10 00:20 00:30 Temperature Pulse Rate 91 H 104 H 91 H Pulse Rate [ From Monitor] Respiratory 22 21 22 Rate Blood Pressure 102/54 102/54 102/54 O2 Sat by Pulse 95 96 97 Oximetry 12/10/17 12/10/17 12/10/17 00:40 00:50 01:00 Temperature Pulse Rate 84 95 H 97 H Pulse Rate [ From Monitor] Respiratory 21 21 20 Rate Blood Pressure 102/54 102/54 98/51 O2 Sat by Pulse 96 96 96 Oximetry 12/10/17 12/10/17 12/10/17 01:10 01:20 01:30 Temperature Pulse Rate 94 H 100 H 99 H Pulse Rate [ From Monitor] Respiratory 20 20 21 Rate Blood Pressure 98/51 98/51 102/54 O2 Sat by Pulse 97 97 97 Oximetry 12/10/17 12/10/17 12/10/17 01:40 01:50 02:00 Temperature Pulse Rate 87 112 H 106 H Pulse Rate [ 106 H From Monitor] Respiratory 19 19 12 Rate Blood Pressure 102/54 102/54 116/62 O2 Sat by Pulse 96 94 86 Oximetry 12/10/17 12/10/17 12/10/17 02:10 02:20 02:30 Temperature Pulse Rate 85 84 92 H Pulse Rate [ From Monitor] Respiratory 18 17 17 Rate Blood Pressure 116/62 116/62 116/62 O2 Sat by Pulse 86 89 89 Oximetry 12/10/17 12/10/17 12/10/17 02:40 02:50 03:00 Temperature Pulse Rate 85 85 89 Pulse Rate [ From Monitor] Respiratory 16 17 16 Rate Blood Pressure 116/62 116/62 107/60 O2 Sat by Pulse 88 89 91 Oximetry 12/10/17 12/10/17 12/10/17 03:10 03:20 03:30 Temperature Pulse Rate 101 H 89 85 Pulse Rate [ From Monitor] Respiratory 19 17 19 Rate Blood Pressure 107/60 107/60 107/60 O2 Sat by Pulse 78 L 86 91 Oximetry 12/10/17 12/10/17 12/10/17 03:40 03:45 03:50 Temperature 97.3 F L Pulse Rate 90 81 Pulse Rate [ From Monitor] Respiratory 19 14 Rate Blood Pressure 107/60 107/60 O2 Sat by Pulse 90 87 Oximetry 12/10/1718 12/10/17 04:00 04:10 04:20 Temperature 97.6 F Pulse Rate 86 92 H 86 Pulse Rate [ 103 H From Monitor] Respiratory 17 15 20 Rate Blood Pressure 107/60 116/58 116/58 O2 Sat by Pulse 88 87 88 Oximetry 18 18 18 04:30 04:40 04:50 Temperature Pulse Rate 85 81 77 Pulse Rate [ From Monitor] Respiratory 18 18 16 Rate Blood Pressure 116/58 116/58 116/58 O2 Sat by Pulse 82 L 92 90 Oximetry 18 12/10/18 18 05:01 05:10 05:20 Temperature Pulse Rate 84 80 79 Pulse Rate [ From Monitor] Respiratory 17 18 15 Rate Blood Pressure 109/58 109/58 109/58 O2 Sat by Pulse 91 92 91 Oximetry 18 12/10/18 18 05:30 05:40 05:50 Temperature Pulse Rate 78 87 88 Pulse Rate [ From Monitor] Respiratory 18 17 17 Rate Blood Pressure 109/58 109/58 109/58 O2 Sat by Pulse 89 90 89 Oximetry 18 18 12/10/17 06:00 06:10 06:20 Temperature Pulse Rate 71 76 81 Pulse Rate [ 103 H From Monitor] Respiratory 16 15 17 Rate Blood Pressure 103/55 103/55 103/55 O2 Sat by Pulse 93 88 92 Oximetry 18 12/10/18 18 06:30 06:40 06:50 Temperature Pulse Rate 80 78 84 Pulse Rate [ From Monitor] Respiratory 17 18 16 Rate Blood Pressure 103/55 103/55 103/55 O2 Sat by Pulse 91 91 93 Oximetry 18 18 18 07:00 07:10 07:20 Temperature Pulse Rate 81 78 87 Pulse Rate [ From Monitor] Respiratory 16 18 16 Rate Blood Pressure 111/64 111/64 111/64 O2 Sat by Pulse 93 91 94 Oximetry 18 12/10/18 18 07:30 07:40 07:50 Temperature Pulse Rate 91 H 106 H 96 H Pulse Rate [ From Monitor] Respiratory 17 10 L 17 Rate Blood Pressure 111/64 111/64 111/64 O2 Sat by Pulse 90 96 94 Oximetry 12/10/18 18/18 18 08:00 08:10 08:20 Temperature 98 F Pulse Rate 102 H 84 89 Pulse Rate [ From Monitor] Respiratory 15 19 16 Rate Blood Pressure 123/69 123/69 123/69 O2 Sat by Pulse 95 96 95 Oximetry 12/10/17 12/10/17 12/10/17 08:30 08:40 08:50 Temperature Pulse Rate 101 H 99 H 99 H Pulse Rate [ From Monitor] Respiratory 26 H 17 17 Rate Blood Pressure 123/69 123/69 123/69 O2 Sat by Pulse 94 94 94 Oximetry 12/10/17 12/10/17 12/10/17 09:00 09:10 09:20 Temperature Pulse Rate 115 H 112 H 126 H Pulse Rate [ From Monitor] Respiratory 18 24 21 Rate Blood Pressure 136/76 136/76 132/78 O2 Sat by Pulse 90 88 88 Oximetry 12/10/17 12/10/17 09:30 09:40 Temperature Pulse Rate 100 H 90 Pulse Rate [ From Monitor] Respiratory 19 35 H Rate Blood Pressure 132/78 119/74 O2 Sat by Pulse 92 90 Oximetry - General physical appearance Narrative Exam: Gen: AAOx3. NAD CV: S1, s2+ resp:even and unlabored Abd: soft, obese, NT, ND. R lower abdominal open wounds under pannus. Wounds packed and covered with abd pads. R lateral groin area with 4 cm fluctuant and erythematous area, unchanged. No drainage. Ext: no c/c/e. - Labs 12/10/17 04:52 12/10/17 04:52 Diabetes panel 12/10/17 Range/Units 04:52 Sodium 138 (137-145) mmol/L Potassium 3.5 L (3.6-5.0) mmol/L Chloride 101.1 (98-107) mmol/L Carbon Dioxide 23 (22-30) mmol/L BUN 22 H (7-17) mg/dL Creatinine 0.8 (0.7-1.2) mg/dL Glucose 171 H (65-100) mg/dL Calcium 8.2 L (8.4-10.2) mg/dL Calcium panel 12/10/17 Range/Units 04:52 Calcium 8.2 L (8.4-10.2) mg/dL Pituitary panel 12/10/17 Range/Units 04:52 Sodium 138 (137-145) mmol/L Potassium 3.5 L (3.6-5.0) mmol/L Chloride 101.1 (98-107) mmol/L Carbon Dioxide 23 (22-30) mmol/L BUN 22 H (7-17) mg/dL Creatinine 0.8 (0.7-1.2) mg/dL Glucose 171 H (65-100) mg/dL Calcium 8.2 L (8.4-10.2) mg/dL Adrenal panel 12/10/17 Range/Units 04:52 Sodium 138 (137-145) mmol/L Potassium 3.5 L (3.6-5.0) mmol/L Chloride 101.1 (98-107) mmol/L Carbon Dioxide 23 (22-30) mmol/L BUN 22 H (7-17) mg/dL Creatinine 0.8 (0.7-1.2) mg/dL Glucose 171 H (65-100) mg/dL Calcium 8.2 L (8.4-10.2) mg/dL
--- NOTE | 2017-12-10 12:21 | Discharge Summary ---
Providers - Providers Date of Admission: 12/09/17 03:39 Attending physician: MANDY HOLLAND MD 12/09/17 06:17 Consult to Wound/ET Nurse [CONS] Routine Reason For Exam: wound eval 12/09/17 10:10 Consult to Physician [CONS] Routine Comment: Consulting Provider: TAMERA DUNCAN Physician Instructions: Reason For Exam: sepsis, with abdominal abscess Consult to Physician [CONS] Routine Comment: Consulting Provider: JAYME WALL Physician Instructions: Reason For Exam: complex abdominal wound concerning for abscess 12/09/17 10:45 Consult to Physician [CONS] Urgent Comment: Consulting Provider: TRISH PACE Physician Instructions: Reason For Exam: critical care management Primary care physician: BARBARA OWENS Hospitalization Reason for admission: sepsis Condition: Stable Hospital course: 62 years old female with history of stage IV endometrial carcinoma with fungating mass to the RLQ abdominal wall and right groin. She is status post radiation and chemotherapy at [facility]. Patient was initially admitted in Jun 2017 due to persistent right lower quadrant and drainage. Biopsy demonstrated stage IV adenocarcinoma of the endometrium. The patient was taken to the operating room and had I&D as well as started on palliative radiation and chemotherapy. During the prolonged hospital course she developed pneumonia due to ESBL and UTI. Of note, at some point she had Cdiff colitis and MRSA infection ? location. Patient was appropriately (treated according to medical records. It seems like by 12/02/17 she spiked a fever and blood cultures were sent which were negative. Urine culture grew Klebsiella multidrug resistant it is unclear which medication she received for this. Patient was then discharged to a rehabilitation facility. Last year, she was found to have a right lower quadrant abdominal wall abscess back in October 2016. She underwent I&D in March 2017 with a wound VAC placement. She then had a fall and experienced left distal femoral fracture status post ORIF. Right upper quadrant/groin wound remained draining and she was admitted to [facility] in June 2017. Unfortunately, she was sent to the ED on 12/08/17 due to fever and tachycardia and nonhealing pelvic wound that straining pus. Of note patient has tunneled right neck PICC for over 30 days. In the ED, initial temperature was 103, heart rate 156, blood pressure 132/65. Initial white count 11. Hemoglobin 7.3. Platelets 285. Creatinine 0.9. Urinalysis is moderate LE white blood cells 48. Chest x-ray was rotated. CT of the abdomen showed right lower lobe abdominal wall defect with a multi loculated subcutaneous fluid collections on lower abdominal wall and right lower quadrant collection with fluid and air levels. He is to be seen. Collections are 13 x 10 cm. Patient Was admitted to the ICU and started on Broad spectrum Abx AND ALSO Repeat Hbg Showed significant anemia requiring transfusion of two units of Blood. After discussion with Surgery and on the patient in agreement was made that the patient should be transferred to the [facility] which I did speak with Dr. Burns and he accepted the patient. Abdominal CT There is a defect in the right lower quadrant anterior abdominal wall. There are multiloculated subcutaneous fluid collections of the lower anterior abdominal wall and right lower quadrant anterior abdominal wall containing contrast, fluid and air consistent with multiple abscesses. There is no demonstrated fistula to intra-abdominal structures including bowel. Maximum overall dimensions of the complex abscess or multiple abscesses is 13 x 10 centimeters. There is a low-density intraperitoneal mass or fluid collection in the right inguinal region measuring 3.9 centimeters. This could be an enlarged pelvic lymph node or possibly early abscess. There does not appear to be any obvious direct connection to the subcutaneous abscesses. Malignancy cannot be excluded.. The liver is enlarged. There is no discrete mass. There are small kidney cysts. There are no kidney stones. There is no hydronephrosis.. There is no bowel obstruction, colitis or enteritis. The appendix is not discretely visible Discharge Diagnosis 1. sepsis 2. abdominal wall abscess vs necrotic lymph nodes 3. chronic abdominal wall wounds 4. hx of endometrial ca 5. Afib RVR 6. anemia 7. Diabete Mellitus Disposition: DC/TX-70 ANOTHER TYPE HLTHCARE Time spent for discharge: 35 mins Core Measure Documentation - Palliative Care Palliative Care/ Comfort Measures: Not Applicable - Core Measures Any of the following diagnoses?: none - VTE Discharge Requirements Deep Vein Thrombosis/Pulmonary Embolism Present on Admission: No Exam - Physical Exam Narrative exam: VITAL SIGNS: Reviewed. GENERAL: The patient appeared well nourished and normally developed. Morbidly obese Vital signs as documented. HEAD: No signs of head trauma. EYES: Pupils are equal. Extraocular motions intact. EARS: Hearing grossly intact. MOUTH: Oropharynx is normal. NECK: No adenopathy, no JVD. CHEST: Chest with clear breath sounds bilaterally. No wheezes, rales, or rhonchi. CARDIAC: Regular rate and rhythm. S1 and S2, without murmurs, gallops, or rubs. VASCULAR: No Edema. Peripheral pulses normal and equal in all extremities. ABDOMEN: Soft, without detectable tenderness. No sign of distention. No rebound or guarding, and no masses palpated. Bowel Sounds normal. MUSCULOSKELETAL: Good range of motion of all major joints. Extremities without clubbing, cyanosis or edema. NEUROLOGIC EXAM: Alert and oriented x 3. No focal sensory or strength deficits. Speech normal. Follows commands. none Ambulatory PSYCHIATRIC: Mood normal. SKIN: Multiple subcutaneous lesions on the abdomen with 4 openings in the groin packed no evidence of drainage at this time - Constitutional Vitals: Temp Pulse Resp BP Pulse Ox 98 F 91 H 24 124/69 94 12/10/17 08:00 12/10/17 12:10 12/10/17 12:10 12/10/17 12:10 12/10/17 12:10 Plan Activity: advance as tolerated, fall precautions Additional Instructions: Follow-up per facility Assuming care Follow up with: BARBARA OWENS MD [Primary Care Provider] - 3-5 Days
--- NOTE | 2017-12-10 13:07 | Progress Note ---
Assessment and Plan - Patient Problems (1) Sepsis Status: Acute Qualifiers: Sepsis type: methicillin resistant Staphylococcus aureus Qualified Code(s) : A41.02 - Sepsis due to Methicillin resistant Staphylococcus aureus Plan to address problem: MRSA bacteremia / bottles, GNR in wound cultures Continue antibiotics...Vancomycin and Meropenem Document allergy to Vanc is an adverse drug reaction(she developed renal failure while on Vancomycin) Monitor hemodynamics closely VTE prophylaxis Wound care (2) Intra-abdominal abscess Status: Acute Plan to address problem: Antibiotics (3) Rapid atrial fibrillation Status: Acute Plan to address problem: Currently rate controlled. Continue with current medications VTE prophylaxis, not fully anticoagulated at this time (4) Morbid obesity Status: Acute Plan to address problem: Life style modifications, weight loss as an out patient (5) Severe anemia Status: Acute Plan to address problem: Supportive blood transfusions Follow iron studies,and if iron deficient may benefit from IV iron therapy to minimize the need for blood transfusions (6) Endometrial cancer, FIGO stage NEENA Status: Acute Plan to address problem: Plan to transfer to [facility] for ongoing care. Transfer center has been contacted Subjective Date of service: 12/10/17 Principal diagnosis: Severe sepsis, atrial fibrillation with RVR, severe anemia Interval history: Mervat was seen and examined. Vitals, labs, medications, chart, imaging reviewed. 24 hour events reviewed. Patient discussed in ICU Inter-disciplinary rounds. Had temperature spike of 102.4 at 8pm, no further fevers. She denies any pain, no cough, no chest pain, no abdominal pain States her heart skips a beat now and again. No dysuria,no increased frequency of urination. voiding well Denies any headaches, no vomiting, but has been nauseous. No diarrhea. Objective - Exam Narrative Exam: General appearance: Alert in NAD, conversant Eyes: anicteric sclerae, moist conjunctivae; no lid-lag; PERRLA HENT: Atraumatic; oropharynx clear with moist mucous membranes and no mucosal ulcerations/no oral thrush; normal hard and soft palate. Normal external ears. Neck: Trachea midline; supple, no thyromegaly or lymphadenopathy Lungs: CTA, with normal respiratory effort and no intercostal retractions CV: RRR, no murmurs Abdomen: Soft, non-tender; RLQ / groin 4 wound openings packed no drainage, induration, no erythema. Extremities: No peripheral edema or extremity lymphadenopathy Skin: Normal temperature, turgor and texture; no rash, ulcers or subcutaneous nodules Psych: Appropriate affect, alert and oriented to person, place and time. Neuro: alert and oriented x 3. Moving all extremities Lines: Right chest tunneled PICC Vital Signs - 12hr 12/10/17 12/10/17 12/10/17 01:10 01:20 01:30 Temperature Pulse Rate 94 H 100 H 99 H Pulse Rate [ From Monitor] Respiratory 20 20 21 Rate Blood Pressure 98/51 98/51 102/54 O2 Sat by Pulse 97 97 97 Oximetry 12/10/17 12/10/17 12/10/17 01:40 01:50 02:00 Temperature Pulse Rate 87 112 H 106 H Pulse Rate [ 106 H From Monitor] Respiratory 19 19 12 Rate Blood Pressure 102/54 102/54 116/62 O2 Sat by Pulse 96 94 86 Oximetry 12/10/17 12/10/17 12/10/17 02:10 02:20 02:30 Temperature Pulse Rate 85 84 92 H Pulse Rate [ From Monitor] Respiratory 18 17 17 Rate Blood Pressure 116/62 116/62 116/62 O2 Sat by Pulse 86 89 89 Oximetry 12/10/17 12/10/17 12/10/17 02:40 02:50 03:00 Temperature Pulse Rate 85 85 89 Pulse Rate [ From Monitor] Respiratory 16 17 16 Rate Blood Pressure 116/62 116/62 107/60 O2 Sat by Pulse 88 89 91 Oximetry 12/10/17 12/10/17 12/10/17 03:10 03:20 03:30 Temperature Pulse Rate 101 H 89 85 Pulse Rate [ From Monitor] Respiratory 19 17 19 Rate Blood Pressure 107/60 107/60 107/60 O2 Sat by Pulse 78 L 86 91 Oximetry 12/10/17 12/10/17 12/10/17 03:40 03:45 03:50 Temperature 97.3 F L Pulse Rate 90 81 Pulse Rate [ From Monitor] Respiratory 19 14 Rate Blood Pressure 107/60 107/60 O2 Sat by Pulse 90 87 Oximetry 12/10/17 12/10/17 12/10/17 04:00 04:10 04:20 Temperature 97.6 F Pulse Rate 86 92 H 86 Pulse Rate [ 103 H From Monitor] Respiratory 17 15 20 Rate Blood Pressure 107/60 116/58 116/58 O2 Sat by Pulse 88 87 88 Oximetry 18 18 18 04:30 04:40 04:50 Temperature Pulse Rate 85 81 77 Pulse Rate [ From Monitor] Respiratory 18 18 16 Rate Blood Pressure 116/58 116/58 116/58 O2 Sat by Pulse 82 L 92 90 Oximetry 18 12/10/18 18 05:01 05:10 05:20 Temperature Pulse Rate 84 80 79 Pulse Rate [ From Monitor] Respiratory 17 18 15 Rate Blood Pressure 109/58 109/58 109/58 O2 Sat by Pulse 91 92 91 Oximetry 18 12/10/18 18 05:30 05:40 05:50 Temperature Pulse Rate 78 87 88 Pulse Rate [ From Monitor] Respiratory 18 17 17 Rate Blood Pressure 109/58 109/58 109/58 O2 Sat by Pulse 89 90 89 Oximetry 18 18 12/10/17 06:00 06:10 06:20 Temperature Pulse Rate 71 76 81 Pulse Rate [ 103 H From Monitor] Respiratory 16 15 17 Rate Blood Pressure 103/55 103/55 103/55 O2 Sat by Pulse 93 88 92 Oximetry 18 12/10/18 18 06:30 06:40 06:50 Temperature Pulse Rate 80 78 84 Pulse Rate [ From Monitor] Respiratory 17 18 16 Rate Blood Pressure 103/55 103/55 103/55 O2 Sat by Pulse 91 91 93 Oximetry 18 18 18 07:00 07:10 07:20 Temperature Pulse Rate 81 78 87 Pulse Rate [ From Monitor] Respiratory 16 18 16 Rate Blood Pressure 111/64 111/64 111/64 O2 Sat by Pulse 93 91 94 Oximetry 18 12/10/18 18 07:30 07:40 07:50 Temperature Pulse Rate 91 H 106 H 96 H Pulse Rate [ From Monitor] Respiratory 17 10 L 17 Rate Blood Pressure 111/64 111/64 111/64 O2 Sat by Pulse 90 96 94 Oximetry 12/10/18 18/18 18 08:00 08:10 08:20 Temperature 98 F Pulse Rate 102 H 84 89 Pulse Rate [ From Monitor] Respiratory 15 19 16 Rate Blood Pressure 123/69 123/69 123/69 O2 Sat by Pulse 95 96 95 Oximetry 18 18 12/10/17 08:30 08:40 08:50 Temperature Pulse Rate 101 H 99 H 99 H Pulse Rate [ From Monitor] Respiratory 26 H 17 17 Rate Blood Pressure 123/69 123/69 123/69 O2 Sat by Pulse 94 94 94 Oximetry 12/10/1718 12/10/17 09:00 09:10 09:20 Temperature Pulse Rate 115 H 112 H 126 H Pulse Rate [ From Monitor] Respiratory 18 24 21 Rate Blood Pressure 136/76 136/76 132/78 O2 Sat by Pulse 90 88 88 Oximetry 12/10/1718 12/10/17 09:30 09:40 09:50 Temperature Pulse Rate 100 H 90 98 H Pulse Rate [ From Monitor] Respiratory 19 35 H 30 H Rate Blood Pressure 132/78 119/74 119/74 O2 Sat by Pulse 92 90 89 Oximetry 12/10/17 12/10/17 12/10/17 10:00 10:10 10:20 Temperature Pulse Rate 96 H 83 89 Pulse Rate [ From Monitor] Respiratory 27 H 22 21 Rate Blood Pressure 130/70 130/70 130/70 O2 Sat by Pulse 90 92 94 Oximetry 12/10/17 12/10/17 12/10/17 10:30 10:40 10:50 Temperature Pulse Rate 90 106 H 102 H Pulse Rate [ From Monitor] Respiratory 25 H 19 25 H Rate Blood Pressure 130/70 130/70 130/70 O2 Sat by Pulse 94 95 98 Oximetry 12/10/17 12/10/17 12/10/17 11:00 11:10 11:20 Temperature Pulse Rate 103 H 101 H 114 H Pulse Rate [ From Monitor] Respiratory 32 H 26 H 29 H Rate Blood Pressure 121/69 124/69 124/69 O2 Sat by Pulse 93 94 92 Oximetry 18 18 12/10/17 11:30 11:40 11:50 Temperature Pulse Rate 94 H 100 H 101 H Pulse Rate [ From Monitor] Respiratory 31 H 26 H 25 H Rate Blood Pressure 124/69 124/69 124/69 O2 Sat by Pulse 94 95 92 Oximetry 18 12/10/17 12:00 12:10 Temperature Pulse Rate 92 H 91 H Pulse Rate [ From Monitor] Respiratory 28 H 24 Rate Blood Pressure 138/76 124/69 O2 Sat by Pulse 95 94 Oximetry CBC and BMP: 12/10/17 04:52 12/10/17 04:52 ABG, PT/INR, D-dimer: PT/INR, D-dimer PT 15.3 Sec. (12.2-14.9) H 12/09/17 03:14 INR 1.15 (0.87-1.13) H 12/09/17 03:14 Abnormal lab findings: Abnormal Labs 12/08/17 12/08/17 12/08/17 01:35 23:29 23:29 RBC 2.31 L Hgb 7.3 L Hct 21.9 L RDW 23.9 H Seg Neuts % (Manual) 92.0 H Lymphocytes % (Manual) 0 L Seg Neutrophils # Man 10.1 H Lymphocytes # (Manual) 0.0 L PT 15.3 H INR 1.15 H VBG pH Sodium Potassium Chloride BUN Glucose POC Glucose Calcium C-Reactive Protein Albumin Urine WBC (Auto) 48.0 H Digoxin Crossmatch 12/08/17 12/08/17 12/09/17 23:29 23:29 01:47 RBC Hgb Hct RDW Seg Neuts % (Manual) Lymphocytes % (Manual) Seg Neutrophils # Man Lymphocytes # (Manual) PT INR VBG pH 7.449 H Sodium 132 L Potassium Chloride 92.0 L BUN 22 H Glucose 263 H POC Glucose Calcium C-Reactive Protein Albumin 2.9 L Urine WBC (Auto) Digoxin 0.7 L Crossmatch 12/09/17 12/09/17 12/09/17 03:14 14:50 15:30 RBC Hgb Hct RDW Seg Neuts % (Manual) Lymphocytes % (Manual) Seg Neutrophils # Man Lymphocytes # (Manual) PT 15.3 H INR 1.15 H VBG pH Sodium Potassium Chloride BUN Glucose POC Glucose 224 H Calcium C-Reactive Protein 10.80 H Albumin Urine WBC (Auto) Digoxin Crossmatch 12/09/17 12/10/17 12/10/17 21:59 04:52 04:52 RBC 1.85 L Hgb 5.9 L* Hct 17.3 L* RDW 24.0 H Seg Neuts % (Manual) Lymphocytes % (Manual) Seg Neutrophils # Man Lymphocytes # (Manual) PT INR VBG pH Sodium Potassium 3.5 L Chloride BUN 22 H Glucose 171 H POC Glucose 197 H Calcium 8.2 L C-Reactive Protein Albumin Urine WBC (Auto) Digoxin Crossmatch 12/10/17 12/10/17 06:51 07:49 RBC Hgb Hct RDW Seg Neuts % (Manual) Lymphocytes % (Manual) Seg Neutrophils # Man Lymphocytes # (Manual) PT INR VBG pH Sodium Potassium Chloride BUN Glucose POC Glucose 184 H Calcium C-Reactive Protein Albumin Urine WBC (Auto) Digoxin Crossmatch See Detail Critical care time in (mins) excluding proc time.: 35 Critical care attestation.: If time is entered above; I have spent that time in minutes in the direct care of this critically ill patient, excluding procedure time.
[2017-12-10] MEDS: PERCOCET 5/325 PO PRN (13:52)
[2017-12-10] MEDS: VANCOMYCIN 2,000 MG in NACL 0.9% 500 ML 500 ML IV SCH (13:53)
[2017-12-10] MEDS ORDERED: TRANSDERM-SCOP TD SCH (14:00)
[2017-12-10] MEDS ORDERED: FLORANEX PO SCH (14:00)
[2017-12-10] MEDS ORDERED: DURAGESIC TD SCH (15:00)
--- NOTE | 2017-12-10 16:03 | Progress Note ---
Assessment and Plan Assessment: 1) Sepsis: still high fever. Etiology most likely MRSA bacteremia +/- pelvic abscesses +/- UTI. 2) Pelvic multi-loculated abscesses: from metastatic necrotic adenocarcinoma of endometrium -CT of the abdomen showed right lower lobe abdominal wall defect with a multi loculated subcutaneous fluid collections on lower abdominal wall and right lower quadrant collection with fluid and air levels. He is to be seen. Collections are 13 x 10 cm. -CRP=10.8 3) MRSA bacteremia: likely real from PICC -Blood cx 12/08 1 of 4 positive forMRSA 4) Recent MDR Klebsiella UTI 5) Stage IV endometrial carcinoma with fungating mass to the RLQ abdominal wall and right groin. She is status post radiation and chemotherapy at [facility]. 6) Recent pneumonia due to ESBL 7) Recurrent UTI 8) History of Cdiff colitis 9) History of MRSA infection ? location. 10) Tunneled right neck PICC for over 30 days. 11) DM 12) Morbid obesity Plan: -remove PICC line THOMAS - order placed -obtain PIV for now until bacteremia clears -repeat blood cx tomorrow -obtain TTE - pending -Consider IR-abdominal collection drainage -continue meropenem to cover MDR UTI -continue vancomcyin IV with careful creat monitoring to cover MRSA bacteremia -very complex case considering transferring back to [facility] Discussed with ICU staff Thank you for your consultation, will follow up with you. Christine Kerns MD Infectious Diseases Specialist [facility] [place] [facility] [phone] O [phone] Subjective Date of service: 12/10/17 Principal diagnosis: staph bacteremia Interval history: Feels ok, still fever 102.4. Microbiology: Blood cultures: 12/02 neg 12/09 MRSA 1 of 4 Urine cultures: 12/02 >100K Klebsiella only sens to meropenem Wound cx 12/09 Current Antimicrobials: Vancomycin 12/09 Meropenem 12/09 Previous Antimicrobials: zosyn 12/09 Objective - Exam Narrative Exam: General appearance: Alert in NAD, conversant Eyes: anicteric sclerae, moist conjunctivae; no lid-lag; PERRLA HENT: Atraumatic; oropharynx clear with moist mucous membranes and no mucosal ulcerations/no oral thrush; normal hard and soft palate. Normal external ears. Neck: Trachea midline; supple, no thyromegaly or lymphadenopathy Lungs: CTA, with normal respiratory effort and no intercostal retractions CV: RRR, no murmurs Abdomen: Soft, non-tender; RLQ / groin 4 wound openings packed no drainage, no erythema. Extremities: No peripheral edema or extremity lymphadenopathy Skin: Normal temperature, turgor and texture; no rash, ulcers or subcutaneous nodules Psych: Appropriate affect, alert and oriented to person, place and time. Neuro: alert and oriented x 3. Moving all extermities Lines: right neck tunneled PICC - Constitutional Vitals: Vital Signs Temp Pulse Resp BP Pulse Ox 98 F 98 H 13 149/71 89 12/10/17 08:00 12/10/17 14:50 12/10/17 14:50 12/10/17 14:50 12/10/17 14:50 Temperature -Last 24 Hours Temperature 98 F Temperature 97.6 F Temperature 97.3 F Temperature 99.8 F Temperature 99.8 F Temperature 102.4 F Temperature 102.4 F - Labs CBC & Chem 7: 12/10/17 04:52 12/10/17 04:52 Labs: Abnormal lab results 12/09/17 12/10/17 12/10/17 Range/Units 21:59 04:52 04:52 RBC 1.85 L (3.65-5.03) M/mm3 Hgb 5.9 L* (10.1-14.3) gm/dl Hct 17.3 L* (30.3-42.9) % RDW 24.0 H (13.2-15.2) % Potassium 3.5 L (3.6-5.0) mmol/L BUN 22 H (7-17) mg/dL Glucose 171 H (65-100) mg/dL POC Glucose 197 H (70-105) Calcium 8.2 L (8.4-10.2) mg/dL Crossmatch 12/10/17 12/10/17 Range/Units 06:51 07:49 RBC (3.65-5.03) M/mm3 Hgb (10.1-14.3) gm/dl Hct (30.3-42.9) % RDW (13.2-15.2) % Potassium (3.6-5.0) mmol/L BUN (7-17) mg/dL Glucose (65-100) mg/dL POC Glucose 184 H (70-105) Calcium (8.4-10.2) mg/dL Crossmatch See Detail
[2017-12-10 16:25] VITALS: BP 135/70
== END 2017-12-10 18:50 | disposition other institution (70) | DRG 871 ==
LOC: ED 22:57 → CC1 12-09 03:39
PROVIDERS: ADMIT Internal Medicine; ATTEND Internal Medicine
PROC: 30233N1 Transfusion of Nonautologous Red Blood Cells into Peripheral Vein, Percutaneous Approach (ICD-10-PCS; principal; 2017-12-10)
DX: A41.9 Sepsis, unspecified organism (principal); R65.21 Severe sepsis with septic shock; N39.0 Urinary tract infection, site not specified; L02.211 Cutaneous abscess of abdominal wall; I48.91 Unspecified atrial fibrillation; E66.01 Morbid (severe) obesity due to excess calories; I11.0 Hypertensive heart disease with heart failure; I50.9 Heart failure, unspecified; G47.33 Obstructive sleep apnea (adult) (pediatric); E87.1 Hypo-osmolality and hyponatremia; X58.XXXA Exposure to other specified factors, initial encounter; D64.9 Anemia, unspecified; Z92.21 Personal history of antineoplastic chemotherapy; Z86.14 Personal history of Methicillin resistant Staphylococcus aureus infection; Z85.89 Personal history of malignant neoplasm of other organs and systems; Z68.42 Body mass index [BMI] 45.0-49.9, adult; Z92.3 Personal history of irradiation
CPT/HCPCS: 36415; 71045; 74177; 80048; 80053; 80162; 81001; 82140; 82270; 82805; 82962; 85007; 85025; 85027; 85610; 85730; 86140; 86403; 86850; 86900; 86901; 86920; 87040; 87076; 87086; 87116; 87186; 87324; 93005; 93010; J1160; J1650; J1815; J2185; J2405; J2543; J2997; J3370; J7030; J7040; J7050; P9016; Q9967